=== PATIENT | female | born 1945 | race Caucasian/White ===

== ENCOUNTER → 2019-04-11 | Day surgery (SDC) | payer MEDICARE, OTHER ==
[~2019-04-11] MED LIST: Lactated Ringers 1,000 ML IV SCH; Propofol 200 MG/20 ML SDV IV ONE
--- NOTE | 2019-04-11 14:48 | OR ---
DATE OF OPERATION: 04/11/2019 PREOPERATIVE DIAGNOSIS: HISTORY OF POLYPS. POSTOPERATIVE DIAGNOSIS: HISTORY OF POLYPS. SURGEON: Ten Osborn MD PROCEDURE: SCREENING COLONOSCOPY WITH FORCEPS POLYP REMOVAL X1. ANESTHESIA: MAC via [employer]. COMPLICATIONS: None. SPECIMEN: Small sessile polyp cecum 3 mm. FINDINGS: 1. Full-length colonoscopy. 2. Minimal sigmoid diverticulosis. 3. Small sessile polyp, likely hyperplastic cecal pouch. RECOMMENDATIONS: Follow colonoscopy on an as needed basis. INDICATIONS: The patient has 2 prior colonoscopies with few smaller polyps removed. She is due for a routine followup. DESCRIPTION OF PROCEDURE: The patient was prepped and draped, placed in the left lateral decubitus position. A lubricated Olympus colonoscope was inserted and with relative ease advanced to the cecum. The patient is very tortuous and redundant, but scope advances quite easily. We were able to directly visualize the ileocecal valve and appendiceal orifice. The bowel prep was fine. Upon withdrawal of the scope, the patient had 1 small flat sessile polyp, just outside the cecal pouch. It was prior 3 mm in size removed in its entirety with a forceps. The rest of the ascending, transverse, and descending colon were completely benign. In the sigmoid colon, I did see a few diverticula, but very minimal. No inflammatory changes. No other signs of vascular abnormalities, colitis. The patient had no other polyps in the sigmoid or rectosigmoid junction. The rectal vault appeared benign. The retroflexion scope in the rectum showed no anal lesions. Air was suctioned. Scope was removed without complication. SHIN/SATISH /[id number]
== END ==
LOC: CC.SDS 06:47
PROVIDERS: ATTEND Family Medicine
DX: Z12.11 Encounter for screening for malignant neoplasm of colon (principal); K63.5 Polyp of colon; K57.30 Diverticulosis of large intestine without perforation or abscess without bleeding; K63.89 Other specified diseases of intestine; I10 Essential (primary) hypertension; E78.5 Hyperlipidemia, unspecified; H26.9 Unspecified cataract; M19.90 Unspecified osteoarthritis, unspecified site; M81.0 Age-related osteoporosis without current pathological fracture; Z86.010 Personal history of colon polyps; Z79.82 Long term (current) use of aspirin; Z79.899 Other long term (current) drug therapy
CPT/HCPCS: 00812; 45380; 88305; 96372; J0897; J2704; J7120

== ENCOUNTER 2024-10-31 16:32 | Emergency (ER) | payer MEDICARE, OTHER ==
[2024-10-31] MEDS: Diphtheria,Pertussis(Acell),Tetanus Vaccine 0.5 ML Syringe IM ONE (17:05)
[2024-10-31] MEDS: Lidocaine 1% 5 ML VIAL INJECT ONE (17:16)
[2024-10-31] MEDS: Bacitracin/Neomycin/Polymyxin B Oint 0.9 GM U/D Packet TOP ONE (17:30)
== END 2024-10-31 17:50 | disposition home or self-care (01) ==
LOC: CC.ED 16:32
DX: S01.21XA Laceration without foreign body of nose, initial encounter (principal); S63.501A Unspecified sprain of right wrist, initial encounter; I10 Essential (primary) hypertension; E78.00 Pure hypercholesterolemia, unspecified; Z90.49 Acquired absence of other specified parts of digestive tract; Z90.710 Acquired absence of both cervix and uterus; Z79.82 Long term (current) use of aspirin; Z79.899 Other long term (current) drug therapy; W01.198A Fall on same level from slipping, tripping and stumbling with subsequent striking against other object, initial encounter; Y92.019 Unspecified place in single-family (private) house as the place of occurrence of the external cause; Z23 Encounter for immunization
CPT/HCPCS: 12011; 73110; 90471; 90715; 99283; A9270; J3490

== ENCOUNTER 2024-12-26 08:58 | Day surgery (SDC) | payer MEDICARE, OTHER ==
[2024-12-26] MEDS: Lactated Ringers 1,000 ML IV SCH (09:19)
[2024-12-26] MEDS ORDERED: Flumazenil 0.1 MG/ML 10 ML MDV ONE (09:25)
[2024-12-26] MEDS ORDERED: Propofol 200 MG/20 ML SDV ONE (09:25)
[2024-12-26] MEDS ORDERED: fentaNYL 50 MCG/ML SDV ONE (09:25)
[2024-12-26] MEDS ORDERED: Ketamine 200 MG/20 ML MDV ONE (09:25)
== END 2024-12-26 10:57 | disposition home or self-care (01) ==
LOC: CC.SDS 08:58
PROVIDERS: ATTEND Family Medicine
DX: K52.9 Noninfective gastroenteritis and colitis, unspecified (principal); K57.30 Diverticulosis of large intestine without perforation or abscess without bleeding
CPT/HCPCS: 00811; 88305; 99100; J2704; J3010; J3490; J7120